=== PATIENT | male | born 1965 | race Two or more races ===

== ENCOUNTER → 2024-07-11 | Outpatient (CLI) | payer BC ==
[~2024-07-11] MED LIST: IOHEXOL 300 MG/ML 100ML BOTTLE IJ ONE
--- NOTE | 2024-07-11 14:50 | DVH ---
XY VENOGRAM UNILATERAL, HISTORY: VENOUS INSUFFICIENCY COMPARISON: None PROCEDURE: Informed consent. The patient was placed on the fluoroscopic table in supine position with the left lower extremity extended. Time out was performed. Via a previously placed foot IV catheter, sequential spot fluoroscopic images/venograms of the lower extremity were obtained during the inject ion of iodinated contrast. Then, with a turniquite, additional contrast was slowly injected. With the arm raised, the was released, and spot imaging was performed over the chest. The procedure was then terminated and the IV removed and a band-aid applied. No immediate complication was identified. FLUOROSCOPY TIME: 0.9 minutes. CONTRAST USED: 60 mL . FINDINGS: Patent deep veins including: popliteal, femoral, common femoral veins. The lesser saphenous and greater saphenous veins appear patent. Prominent varicose veins in the ankle, calf, popliteal fo ssa and thigh. Patent check cashier veins. IMPRESSIONS: Patent deep veins including: popliteal, femoral, common femoral veins. The lesser saphenous and great er saphenous veins appear patent. Prominent varicose veins in the ankle, calf, popliteal fossa and th igh. Patent check cashier veins.
== END | disposition home or self-care (01) ==
LOC: XYW 10:30
PROVIDERS: ATTEND Podiatrist
DX: I87.2 Venous insufficiency (chronic) (peripheral) (principal)
CPT/HCPCS: 75820; Q9967

== ENCOUNTER → 2024-09-20 | Outpatient (CLI) | payer BC ==
[2024-09-20 09:02] LABS: Basophils # (auto) 0 10 ^3/uL (0-0.2); Basophils % (auto) 0.4 % (0.0-2.0); Eosinophils # (auto) 0.2 10 ^3/uL (0-0.8); Eosinophils % (auto) 3.2 % (0.0-7.0); Hematocrit 43.3 % (41.0-53.0); Hemoglobin 14.6 g/dL (13.5-17.5); Lymphocytes # (auto) 1.2 10 ^3/uL (0.4-5.4); Lymphocytes % (auto) 24.3 % (10.0-50.0); Mean Corpuscular Hemoglobin 30.7 pg (28.0-32.0); Mean Corpuscular Hgb Conc. 33.7 g/dL (32.0-36.0); Mean Corpuscular Volume 90.9 fL (80.0-100.0); Monocytes # (auto) 0.7 10 ^3/uL (0-1.3); Monocytes % (auto) 13.7 % (0.0-12.0); Neutrophils # (auto) 2.8 10 ^3/uL (1.6-8.6); Neutrophils % (auto) 58.4 % (37.0-80.0); Nucleated Red Blood Cells % 0.1 %; Platelet Count (auto) 240 10^3/uL (140-450); Red Blood Cells 4.77 10^6/uL (4.5-5.90); Red Cell Distribution Width 13.3 % (11.8-14.3); White Blood Cell 4.9 10^3/uL (4.4-10.8)
[2024-09-20 09:31] LABS: Alanine Aminotransferase 33 U/L (7-40); Albumin 4.3 g/dL (3.2-4.8); Alkaline Phosphatase 82 U/L (46-116); Anion Gap 7 (5-15); Aspartate Aminotransferase 25 U/L (13-40); BUN/Creatinine Ratio 14.7 (10.0-20.0); Bilirubin, Total 0.7 mg/dL (0.2-1.0); Blood Urea Nitrogen 15 mg/dL (9-23); Calcium 9.4 mg/dL (8.7-10.4); Carbon Dioxide 26 mmol/L (20-31); Chloride 106 mmol/L (98-107); Cholesterol 174 mg/dL (< 200); Glucose 93 mg/dL (74-106); HDL Cholesterol 49 mg/dL (40-59); Potassium 4.1 mmol/L (3.5-5.1); Sodium 139 mmol/L (136-145); Triglycerides 119 mg/dL (< 150)
[2024-09-20 09:40] LABS: LDL Cholesterol 104 mg/dL (< 100)
== END | disposition home or self-care (01) ==
LOC: LAB 08:35
PROVIDERS: ATTEND Internal Medicine
DX: E78.5 Hyperlipidemia, unspecified (principal); Z00.00 Encounter for general adult medical examination without abnormal findings
CPT/HCPCS: 36415; 80053; 80061; 83036; 84443; 85025

== ENCOUNTER 2025-01-27 08:57 | Emergency (ER) | payer BC ==
[~2025-01-27] VITALS: Ht 188 cm; Wt 92.7 kg
--- NOTE | 2025-01-27 09:17 | ED.PDOC ---
History of Present Illness(SKN HPI Comments This is a 59 year-old male, with a PMHX of Hypercholesterolemia, presents to the ED with a chief complaint of rash to the groin with associated pain, redness, and blistering for X10 days after swimming at a water park. Patient reports going to Urgent Care X3 days ago and being prescribed anti-fungal medications with no alleviating factors noted. Patient came to the ED upon worsening symptoms. Patient has no further complaints at this time and otherwise denies fever, chills, dysuria, hematuria, or dizziness. Chief Complaint: Rash Time Seen by MD: 09:07 History of Present Illness: Medications, Allergies Allergies: Coded Allergies: NO KNOWN ALLERGIES (Unverified , 01/27/25) Home Meds Active Scripts Miconazole Nitrate (Azolen Anti-Fungal Wash) 2 % Sarah, 2 % EX BID for 10 Days, #30 ML Prov:ANJALI VARGHESE MD 01/27/25 Information Source: Patient Mode of Arrival: Ambulatory Severity: Moderate Timing: Days Duration: Since onset Occurence: Outdoors Associated Signs and Symptoms: Other (rash ) Past Medical History PAST MEDICAL HISTORY: High Lipids Surgical History: Denies all surgeries Family History Family History: Reviewed,noncontributory to illness, No family hx of Cancer, No family hx of DM, No family hx of Heart darell, No family hx of HTN, No family hx ofKidney darell, No family hx of Liver darell, No family hx of Lung darell, No family hx of Stroke Social History Smoker: Non-Smoker Alcohol: Denies ETOH Use Drugs: Denies Drug Use Lives In: Home Constitutional: denies: chills, diaphoresis, fatigue, fever, malaise, sweats, weakness, others EENTM: denies: blurred vision, double vision, ear bleeding, ear discharge, ear drainage, ear pain, ear ringing, eye pain, eye redness, hearing loss, mouth pain, mouth swelling, nasal discharge, nose bleeding, nose congestion, nose pain, photophobia, tearing, throat pain, throat swelling, voice changes, others Respiratory: denies: cough, hemoptysis, orthopnea, SOB at rest, shortness of breath, SOB with excertion, stridor, wheezing, others Cardiovascular: denies: chest pain, dizzy spells, diaphoresis, Dyspnea on exertion, edema, irregular heart beat, left arm pain, lightheadedness, palpitations, PND, syncope, others Gastrointestinal: denies: abdomen distended, abdominal pain, blood streaked bowels, constipated, diarrhea, dysphagia, difficulty swallowing, hematemesis, melena, nausea, poor appetite, poor fluid intake, rectal bleeding, rectal pain, vomiting, others Genitourinary: denies: burning, dysuria, flank pain, frequency, hematuria, incontinence, penile discharge, penile sore, pain, testicle pain, testicle swelling, urgency, others Neurological: denies: dizziness, fainting, headache, left sided numbness, left sided weakness, numbness, paresthesia, pre-existing deficit, right sided numbness, right sided weakness, seizure, speech problems, tingling, tremors, weakness, others Musculoskeletal: denies: back pain, gout, joint pain, joint swelling, muscle pain, muscle stiffness, neck pain, others Integumetry: reports: rash, others (pain, redness, and bilstering to the area ); denies: bruises, change in color, change in hair/nails, dryness, laceration, lesions, lumps, wounds Allergic/Immunocompromised: denies: Difficulty Healing, Frequent Infections, Hives, Itching, others Hematologic/Lymphatic: denies: anemia, blood clots, easy bleeding, easy bruising, swollen glands, others Endocrine: denies: excessive hunger, excessive sweating, excessive thirst, excessive urination, flushing, intolerance to cold, intolerance to heat, unexplained weight gain, unexplained weight loss, others Psychiatric: denies: anxiety, bipolar disorder, depression, hopeless, panic disorder, schizophrenia, sleepless, suicidal, others All Other Systems: Reviewed and Negative Physical Exam General Appearance: Moderate Distress HEENT: Normal ENT Inspection, Pharynx Normal, TMs Normal Neck: Full Range of Motion, Non-Tender, Normal, Normal Inspection Respiratory: Chest Non-Tender, Lungs Clear, No Accessory Muscle Use, No Respiratory Distress, Normal Breath Sounds Cardiovascular: No Edema, No JVD, No Murmur, No Gallop, Normal Peripheral Pulses, Regular Rate/Rhythm Breast Exam: Deferred Gastrointestinal: No Organomegaly, Non Tender, No Pulsatile Mass, Normal Bowel Sounds, Soft Genitalia: Deferred Pelvic: Deferred Rectal: Deferred Extremities: No calf tenderness, Normal capillary refill, Normal inspection, Normal range of motion, Non-tender, No pedal edema Musculoskeletal : Apperance: Normal Neurologic: Alert, [employer] II-XII nml as Tested, No Motor Deficits, Normal Affect, Normal Mood, No Sensory Deficits Cerebellar Function: Normal Reflexes: Normal Skin: Dry, Normal Color, Rash (Pelvic area), Warm Peripheral Pulses: 3+ Radial (R), 3+ Radial (L) Lymphatic: No Adenopathy Was a procedure done? Was a procedure done?: No Differential Diagnosis (INTG) Differential Diagnosis: Cellulitis X-Ray, Labs, Meds, VS Vital Signs Date Time Temp Pulse Resp B/P (MAP) Pulse Ox O2 Delivery O2 Flow Rate FiO2 01/27/25 08:59 98.5 77 18 153/88 98 98.5 Patient alert. Has rash in the pelvic area. Vitals stable. Answering questions. Was seen in urgent care recently. She is on antifungal cream. Explained to the patient. Was given azole cream. Was told to follow up with his primary care physician. Was told to come back if there is any problem. Time of 1ST Reevaluation: 09:30 Reevaluation 1ST: Unchanged Patient Education/Counseling: Diagnosis, Treatment Family Education/Counseling: No Family Present SEPSIS Sepsis Screen Date sepsis recognized/suspect: Jan 27, 2025 Time Sepsis recognized/suspect: 858 Recent Procedure: No Respiratory Rate >20: No Heart Rate >90: No Temp<36 C (96.8 F) or >38.3 C: No SBP <90 or MAP <65 mmHG: No New Acute Mental Status Change: No Is the patient on CPAP, BIPAP,: No Vital Signs Date Time Temp Pulse Resp B/P (MAP) Pulse Ox O2 Delivery O2 Flow Rate FiO2 01/27/25 08:59 98.5 77 18 153/88 98 98.5 Departure 1 Departure Time of Disposition: :20 Impression: Primary Impression: Ringworm Additional Impression: Tinea cruris Disposition: HOME / SELF CARE / HOMELESS Condition: Good e-Prescriptions Miconazole Nitrate (Azolen Anti-Fungal Wash) 2 % Sarah 2 % EX BID for 10 Days, #30 ML Prov: ANJALI VARGHESE MD 01/27/25 Discharged With: Self Critical Care Note Critical Care Time?: No Stability Stability form required: No Heart Score Heart Score: Heart Score Response (Comments) Value History N/A 0 EKG N/A 0 Age N/A 0 Risk Factors N/A 0 Troponin N/A 0 Total 0 I personally scribed for ANJALI VARGHESE MD ([facility]) on 01/27/25 at 09:17. Electronically submitted by Mercedes Medina ([facility]). ANJALI VARGHESE MD Jan 27, 2025 09:17
[2025-01-27] MEDS ORDERED: [UNRECOGNIZED DRUG - CODE] EX (09:31)
[2025-01-27 09:37] VITALS: BP 153/88; PULSE 77; RESP 18; TEMP 98.5; O2SAT 98
== END 2025-01-27 09:41 | disposition home or self-care (01) ==
LOC: ER 08:57
DX: B35.9 Dermatophytosis, unspecified (principal); B35.6 Tinea cruris; E78.5 Hyperlipidemia, unspecified

== ENCOUNTER 2025-06-13 09:51 | Outpatient (CLI) | payer BC ==
[~2025-06-13 09:51] MED LIST changes: -IOHEXOL 300 MG/ML 100ML BOTTLE IJ ONE; +[UNRECOGNIZED DRUG - CODE] EX
[2025-06-13 10:56] LABS: Cholesterol 172 mg/dL (< 200); HDL Cholesterol 50 mg/dL (40-59)
[2025-06-13 11:01] LABS: Triglycerides 154 mg/dL (< 150)
== END 2025-06-13 17:00 | disposition home or self-care (01) ==
LOC: LAB 09:51
PROVIDERS: ATTEND Internal Medicine
DX: E78.5 Hyperlipidemia, unspecified (principal); D12.6 Benign neoplasm of colon, unspecified
CPT/HCPCS: 36415; 80061; 84153